=== PATIENT | male | born 1980 | race Caucasian/White ===

== ENCOUNTER 2019-01-26 17:26 | Emergency (ER) | payer OTHER ==
[~2019-01-26] VITALS: Ht 182.9 cm; Wt 63.5 kg
[2019-01-26] MEDS ORDERED: SYNTHROID125 MC1 PO (18:02)
[2019-01-26 18:56] VITALS: BP 99/69
== END 2019-01-26 18:58 | disposition home or self-care (01) ==
LOC: ER 17:26
DX: F15.10 Other stimulant abuse, uncomplicated (principal)